=== PATIENT | female | born 1970 | race Caucasian/White ===

== ENCOUNTER 2020-03-02 14:28 | Emergency (ER) | payer SELFPAY ==
[~2020-03-02] VITALS: Ht 162.6 cm; Wt 126.9 kg
--- NOTE | 2020-03-02 15:48 | NUR ---
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 THA
--- NOTE | 2020-03-02 15:56 | NUR ---
PT BIB P/V WITH N/V/D THAT BEGAN WITH NAUSEA UPON WAKING AT 8AM FOLLOWED BY DIARRHEA AND VOMITING AT 10 AM. PT REPORTS EATING SHRIMP LAST NOC. MINDY PAC AT BEDSIDE. HX OF DANNIELLE AND HYSTERECTOMY.
[2020-03-02] MEDS ORDERED: ONDANSETRON 2MG/ML, 2ML IVPush ONE (16:00)
[2020-03-02] MEDS ORDERED: SODIUM CHLORIDE FLUSH 10ML SYR IVF ONE (16:00)
[2020-03-02] MEDS ORDERED: FAMOTIDINE 20 MG/2 ML IVPB ONE (16:00)
[2020-03-02] MEDS ORDERED: SODIUM CHLORIDE 0.9% 1,000ML IVBOLUS ONE (16:00)
[2020-03-02] MEDS ORDERED: ONDANSETRON 2MG/ML, 2ML ONE (16:10)
[2020-03-02] MEDS ORDERED: FAMOTIDINE 20 MG/2 ML ONE (16:11)
[2020-03-02 16:20] LABS: BASOPHILS % (AUTO) 0 % (0-1); EOSINOPHILS # (AUTO) 0.01 x10^3/uL (0-0.4); EOSINOPHILS % (AUTO) 0 % (1-7); LYMPHOCYTES # (AUTO) 0.46 x10^3/uL (1-3.4); LYMPHOCYTES % (AUTO) 5 % (22-44); MD NO; MEAN CORPUSCULAR HEMOGLOBIN 32.1 pg (27.0-34.8); MEAN CORPUSCULAR HGB CONC 33.2 g/dL (32.4-35.8); MEAN CORPUSCULAR VOLUME 96.5 fL (80-100); MEAN PLATELET VOLUME 7.1 fL (7.4-10.4); MONOCYTES # (AUTO) 0.19 x10^3/uL (0.2-0.8); MONOCYTES % (AUTO) 2 % (2-9); NEUTROPHILS # (AUTO) 8.52 x10^3/uL (1.8-6.8); NEUTROPHILS % (AUTO) 93 % (42-75); PLATELET COUNT 273 x10^3/uL (130-400); RED BLOOD COUNT 4.56 x10^6/uL (3.82-5.3); RED CELL DISTRIBUTION WIDTH 13.1 % (9.6-15.2)
[2020-03-02] MEDS ORDERED: OLME40TA12 PO (16:22)
--- NOTE | 2020-03-02 16:28 | NUR ---
PT TO RAD.
[2020-03-02 16:36] LABS: ALANINE AMINOTRANSFERASE 64 U/L (12-78); ALBUMIN 3.9 g/dL (3.4-5.0); ANION GAP 6 mmol/L (5-15); CALCIUM 9.4 mg/dL (8.5-10.1); CHLORIDE 107 mmol/L (98-107); CREATININE 1.07 mg/dL (0.55-1.02)
[2020-03-02 16:38] LABS: ALKALINE PHOSPHATASE 72 U/L (45-117); BILIRUBIN,TOTAL 0.9 mg/dL (0.2-1.0); TOTAL PROTEIN 7.7 g/dL (6.4-8.2)
--- NOTE | 2020-03-02 17:05 | NUR ---
BREAK RN: PT AMB TO BR TO ATTEMPT UA SAMPLE.
--- NOTE | 2020-03-02 17:15 | NUR ---
BREAK RN: PT RETURN TO ROOM. C/O "BEING COLD" RECHECK TEMP 100.8, TO BE NOTIFIED. UA SAMPLE TO LAB.
[2020-03-02] MEDS ORDERED: ACETAMINOPHEN 500 MG TABLET ONE (17:28)
[2020-03-02] MEDS ORDERED: ACETAMINOPHEN 500 MG TABLET PO ONE (17:30)
[2020-03-02 17:48] LABS: MICROSCOPIC INDICATED
--- NOTE | 2020-03-02 17:51 | NUR ---
REPORT TO [facility]
--- NOTE | 2020-03-02 18:20 | NUR ---
CHART UP FOR MD RECHECK. PT AWARE.
[2020-03-02 18:26] VITALS: BP 112/68
== END 2020-03-02 19:12 | disposition home or self-care (01) ==
LOC: ED 19:11
DX: Z03.818 Encounter for observation for suspected exposure to other biological agents ruled out (principal); K52.9 Noninfective gastroenteritis and colitis, unspecified; A08.4 Viral intestinal infection, unspecified; I95.9 Hypotension, unspecified; R11.2 Nausea with vomiting, unspecified; R10.13 Epigastric pain; R00.0 Tachycardia, unspecified; Z90.49 Acquired absence of other specified parts of digestive tract; Z90.710 Acquired absence of both cervix and uterus
CPT/HCPCS: 36415; 74022; 80053; 81001; 83690; 85025; 87086; 87635; 93005; 96361; 96374; 96375; 99285; J2405; J3490; J7030; 96365